=== PATIENT | female | born 1990 | race Caucasian/White ===

== ENCOUNTER 2021-08-31 21:23 | Emergency (ER) | payer SELFPAY ==
[2021-08-31] MEDS ORDERED: Acetaminophen 500 MG TAB ONE (22:04)
[2021-08-31 22:58] LABS: SARS-CoV-2 NAA Rapid Test Not Detected (NotDetected)
== END 2021-08-31 23:12 | disposition home or self-care (01) ==
LOC: CSHERS 21:23
DX: B34.9 Viral infection, unspecified (principal); Z20.822 Contact with and (suspected) exposure to COVID-19
CPT/HCPCS: 0240U; 99284

== ENCOUNTER 2022-02-08 14:48 | Emergency (ER) | payer OTHER, SELFPAY ==
[2022-02-08] MEDS ORDERED: Mag-Al Plus 1200 MG/1200 MG/120 MG/30 ML UDCUP ONE (17:20)
[2022-02-08] MEDS ORDERED: Lidocaine Viscous Sol 2% 15 ml UD Cup ONE (17:20)
== END 2022-02-08 17:54 | disposition home or self-care (01) ==
LOC: CSHERS 14:48
DX: T18.108A Unspecified foreign body in esophagus causing other injury, initial encounter (principal)
CPT/HCPCS: 99283

== ENCOUNTER 2022-05-19 14:30 | Emergency (ER) | payer OTHER | END 2022-05-19 15:43 | disposition home or self-care (01) | LOC: CSHERS 14:30 | DX: J01.90 Acute sinusitis, unspecified (principal); B96.89 Other specified bacterial agents as the cause of diseases classified elsewhere | CPT/HCPCS: 87081; 87430; 99283 ==

== ENCOUNTER 2024-02-24 21:20 | Emergency (ER) | payer BC ==
[2024-02-24] MEDS ORDERED: Dicyclomine 20 MG/2 ML VIAL ONE (22:32)
[2024-02-24] MEDS ORDERED: Glucagon 1 MG/ML KIT ONE (23:40)
[2024-02-24] MEDS ORDERED: Ondansetron PF 4 MG/2 ML Vial ONE (23:58)
== END 2024-02-25 00:16 | disposition short-term general hospital (02) ==
LOC: CSHERS 21:20
DX: K22.2 Esophageal obstruction (principal)
CPT/HCPCS: 96372; 96374; 96375; J1611; J2405

== ENCOUNTER 2024-04-07 15:26 | Emergency (ER) | payer BC ==
[2024-04-07] MEDS ORDERED: Diazepam 5 MG TAB ONE (17:02)
[2024-04-07] MEDS ORDERED: Ketorolac Tromethamine 30 MG (1 mL) VIAL ONE (17:02)
== END 2024-04-07 17:19 | disposition home or self-care (01) ==
LOC: CSHERS 15:26
DX: M62.838 Other muscle spasm (principal)
CPT/HCPCS: 96372; J1885